=== PATIENT | female | born 1975 | race African-American/Black ===

== ENCOUNTER 2017-04-12 05:13 | Day surgery (SDC) | payer BC ==
[~2017-04-12] VITALS: Ht 172.7 cm; Wt 83.9 kg
[2017-04-12] VITALS (11 sets, daily range): BP systolic 119–144; BP diastolic 73–97
[2017-04-12] MEDS ORDERED: oxyCONTIN 20mg tab ORAL ONE ×2 (06:00→06:35)
[2017-04-12] MEDS ORDERED: celeBREX 100mg Cap **SURGERY PATIENTS ONLY ORAL ONE (06:00)
[2017-04-12] MEDS ORDERED: ceFAZolin sod 1 GM in NS 55 ML IVPB ONE (06:00)
[2017-04-12] MEDS ORDERED: NORCO 5-325 TA1 EAC1 ORAL (06:06)
[2017-04-12] MEDS ORDERED: Ropivacaine 5mg/ml Vial 20ml INJ ONE (06:40)
[2017-04-12] MEDS ORDERED: Bupivacaine w/Epi 0.5% 30ml Vial INJ ONE (06:40)
[2017-04-12] MEDS ORDERED: Bacitracin 50000 Units Vial ONE (06:40)
[2017-04-12] MEDS ORDERED: celeBREX 200mg Cap **SURGERY PATIENTS ONLY ORAL ONE (06:45)
[2017-04-12] MEDS ORDERED: D5 1/2NS 1,000 ML IV SCH (07:00)
[2017-04-12] MEDS ORDERED: HYDROmorphone 1mg/ml Carpuject SUBQ PRN (07:00)
[2017-04-12] MEDS ORDERED: Norco 5mg/325mg tab ORAL PRN (07:00)
[2017-04-12] MEDS ORDERED: Tylenol #3 tab (300mg/30mg) ORAL PRN (07:00)
--- NOTE | 2017-04-12 07:01 | Pre-Procedure Note/Attestation ---
Pre-Procedure Note/Attestation Complete Prior to Procedure Planned Procedure: left Procedure Narrative: left ankle ORIF Indications for Procedure Pre-Operative Diagnosis: Left ankle fracture Attestation I attest that I discussed the nature of the procedure; its benefits; risks and complications; and alternatives (and the risks and benefits of such alternatives ), prior to the procedure, with the patient (or the patient's legal consumer sales representative). I attest that, if there was a reasonable possibility of needing a blood transfusion, the patient (or the patient's legal consumer sales representative) was given the [facility] standardized written summary, pursuant to the [employer] Blood Safety Act ([place] Health and Safety Code # 1645, as amended). I attest that I re-evaluated the patient just prior to the surgery and that there has been no change in the patient's H&P, except as documented below:NONE JEANIE PORRAS Apr 12, 2017 07:01
--- NOTE | 2017-04-12 08:30 | Brief Operative Note ---
Immediate Post Operative Note Operative Note Chief Complaint: left ankle injury Pre-op Diagnosis: Left ankle fracture Procedure: left ankle ORIF Post-op Diagnosis: same as pre-op Findings: consistent w/pre-op dx studies Surgeon: MD Flor Dog Barber: SLIME Eller Anesthesiologist: MD Pavan Anesthesia: general Specimen: none Complications: none Condition: stable Estimated Blood Loss: minimal Drains: none Implant(s) used?: Yes - JEANIE Rider Apr 12, 2017 08:30
[2017-04-12] MEDS ORDERED: LR 1000ml 1,000 ML IVLG SCH (08:38)
--- NOTE | 2017-04-12 08:38 | Anethesia Preoperative Eval ---
Anesthesia Pre-op PMH/ROS General Date of Evaluation: Apr 12, 2017 Time of Evaluation: 06:48 Anesthesiologist: Pavan ASA Score: ASA 2 Mallampati Score Class I : Soft palate, uvula, fauces, pillars visible Class II: Soft palate, uvula, fauces visible Class III: Soft palate, base of uvula visible Class IV: Only hard plate visible Mallampati Classification: Class II Surgeon: Alicia Diagnosis: L ankle Fx. Surgical Procedure: ORIF of L ankle Fx. Anesthesia History: none Social History: smoking - h/o Family History: no anesthesia problems Allergies: Coded Allergies: No Known Allergies (Unverified , 04/11/17) Past Medical History Cardiovascular: Denies: CAD, HTN, [place], arrhythmia, other, valve dz Pulmonary: Denies: COPD, GAYLA, asthma, other Gastrointestinal/Genitourinary: Reports: GERD - mild, Denies: CRI, ESRD, other Neurologic/Psychiatric: Reports: depression/anxiety, Denies: CVA, TIA, dementia, other Endocrine: Denies: DM, hypothyroidism, other, steroids HEENT: Denies: DIOMEDE (L), DIOMEDE (R), cataract (L), cataract (R), glaucoma, other Hematology/Immune: Denies: DVT, anemia, bleeding disorder, other Musculoskeletal/Integumentary: Denies: DDD, DJD, OA, RA, edema, other Other: other - overweight PMH Narrative: as above, acute posttraumatic L ankle Fx. PSxH Narrative: none Anesthesia Pre-op Phys. Exam Physician Exam Last Vital Signs Date Time Temp Pulse Resp B/P Pulse Ox O2 Delivery O2 Flow Rate FiO2 04/12/17 06:12 97.8 65 20 140/82 100 Room Air Constitutional: NAD Neurologic: CN 2-12 intact Cardiovascular: RRR, no M/R/G Respiratory: CTA Gastrointestinal: S/NT/ND Airway Exam Mallampati Score: Class II MO: full Neck: flexible ROM: full Teeth: intact Dentures: no lower, no upper Anesthesia Pre-op A/P Labs see chart Urine Test Test 04/12/17 06:20 Urine HCG, Qualitative Negative Studies Pre-op Studies: EKG - NSR Risk Assessment & Plan Assessment: ASA 2 Plan: GA with LMA, L sciatic nerve block - popliteal fossa - for p/op pain control. Difficulty with peripheral I/V line placement, possible options including PICC line placement explained to patient, she agreed to proceed with attempt to place a line into EJ vein. Placement successful, first attempt , will proceed with regional block and scheduled Sx. Status Change Before Surgery: No Pre-Antibiotics Drug: Ancef 2 gr. Given Within 1 Hr of Incision: Yes Time Given: 08:07 ABIGAIL MACE M.D. Apr 12, 2017 08:38
[2017-04-12] MEDS ORDERED: Metoclopramide 10mg/2ml Inj IVP PRN (08:45)
[2017-04-12] MEDS ORDERED: Hydromorphone 0.5mg/0.5ml inj IVP PRN (08:45)
[2017-04-12] MEDS ORDERED: Midazolam 2mg/2ml Inj IVP PRN (08:45)
[2017-04-12] MEDS ORDERED: Meperidine 25mg/0.5ml Inj IV PRN (08:45)
[2017-04-12] MEDS ORDERED: Ketorolac 30mg Inj IV PRN (08:45)
[2017-04-12] MEDS ORDERED: DiphenhydrAMINE 50mg/ml Inj IVP PRN (08:45)
--- NOTE | 2017-04-12 09:36 | Immediate Post-Op Evaluation ---
Immediate Post-Op Evalulation Immediate Post-Op Evalulation Procedure: L ankle Fx ORIF Date of Evaluation: Apr 12, 2017 Time of Evaluation: 09:34 IV Fluids: 1000 Blood Products: none Estimated Blood Loss: min Urinary Output: some on the table Blood Pressure Systolic: 144 Blood Pressure Diastolic: 84 Pulse Rate: 72 Respiratory Rate: 22 Temperature (Fahrenheit): 97.6 Pain Score (1-10): 2 Nausea: No Vomiting: No Complications none Patient Status: reacts, patent, none Hydration Status: adequate ABIGAIL MACE M.D. Apr 12, 2017 09:36
--- NOTE | 2017-04-12 12:47 | 48 Hour Post Anesthesia Eval ---
Post Anesthesia Evaluation Procedure: L ankle Fx ORIF Date of Evaluation: Apr 12, 2017 Time of Evaluation: 12:46 Blood Pressure Systolic: 132 0: 56 Pulse Rate: 72 Respiratory Rate: 20 Temperature (Fahrenheit): 97.6 O2 Sat by Pulse Oximetry: 98 Airway: patent Nausea: No Vomiting: No Pain Intensity: 2 Hydration Status: adequate Cardiopulmonary Status: stable Mental Status/LOC: patient returned to baseline Follow-up Care/Observations: n/a Post-Anesthesia Complications: none Follow-up care needed: ready to discharge ABIGAIL MACE M.D. Apr 12, 2017 12:47
--- NOTE | 2017-04-12 13:45 | Operative Note - Dictated ---
DATE OF OPERATION: 04/12/2017 PREOPERATIVE DIAGNOSIS: Left ankle bimalleolar fracture with syndesmotic disruption. POSTOPERATIVE DIAGNOSIS: Left ankle bimalleolar fracture with syndesmotic disruption. PROCEDURES: 1. Left ankle open reduction and internal fixation using a Karen one third tubular plate with a lag screw in the fibula. 2. Partially threaded cancellous screw in the medial malleolus. 3. Left ankle syndesmotic reduction repair using a [employer] juggernaut ankle syndesmotic fixation stainless steel. SURGEON: Durga Ray M.D. LANDSCAPER: Lola Eller PA-C. ANESTHESIOLOGIST: Forest Browne M.D. ANESTHESIA: General LMA anesthesia. ESTIMATED BLOOD LOSS: Less than 20 mL. COMPLICATIONS: None. TOURNIQUET TIME: 60 minutes. BRIEF HISTORY: The patient is a pleasant 41-year-old female, who sustained a fall and had the ankle fracture. This was a displaced fracture. She was reduced in the ER. The syndesmosis appeared to be displaced. After full discussion of the risks and benefits of the surgery and complications associated with it including infection, bleeding, neurovascular complication, possibility of malunion, nonunion, possible need for further surgery, possibility of posttraumatic arthritis, DVT, PEs, and other complication, she opted for surgical treatment as described above. OPERATIVE PROCEDURE: The patient was brought to the operating room table and was placed supine. All pressure points were well padded. General LMA anesthesia was induced. The left ankle was prepped and draped in the usual sterile fashion and it was exsanguinated and tourniquet was inflated to 275 mmHg. A standard approach to the lateral ankle was performed. The fibula was exposed. There was oblique fracture. This was reduced anatomically and a lag screw was placed from anterior posterior. At this point, a 1/3 tubular plate was applied and two cancellous screws were placed distally around the joint line and three bicortical screws were placed proximally. This held the fracture anatomically in place. Once this was completed, care was given to the medial side. An incision was made over the medial malleolus. Incision was taken down through subcutaneous tissue. The medial malleolus fracture was identified. The periosteum was resected from the fracture site. The fracture was reduced anatomically and at this point, two 4.0 partially threaded cancellous screws measuring 40 mm were placed in and compressed the fracture. This provided excellent stability of the medial side. At this point, the syndesmosis was checked and it appeared to be unstable. Therefore, a Biomet juggernaut ankle syndesmotic fixation device with stainless steel button was used to fix the syndesmosis after syndesmosis was reduced with the ankle in dorsiflexion using clamps. Once this was completed, AP, lateral, mortise views were obtained and the mortise appeared to be held in place well. There was no instability. The reductions were anatomical. Wounds were thoroughly irrigated using copious amount of fluid. The subcutaneous tissue was closed in 2-0 Vicryl suture. The skin was closed using 3-0 Monocryl suture. Local injection was performed. Posterior splint and sugar-tong splint was applied. The patient tolerated the procedure well without any complication and was taken to recovery room in stable condition. Durga Ray M.D. DR: KIMBERLY JOB#: [id number] CC:
--- NOTE | 2017-04-13 11:01 | Diagnostic Imaging Report ---
Indications: Open reduction and internal fixation of left ankle bimalleolar fractures Technique: Above procedure including fluoroscopy performed by Dr. Vargas. Portable intraoperative spot film images of the left ankle performed in AP and lateral projections. Findings: Comparison: None 2 parallel fixation screws traverse the medial talus. Fixation plate and multiple anchoring screws are present along the distal aspect of the fibula. No malalignment is identified. Lateral view demonstrates suggestion of mild widening of the intra-aspect of the tibiotalar joint. IMPRESSION: Reduction internal fixation of distal tibial and fibular fractures Suggestion of mild ankle joint widening anteriorly
== END 2017-04-12 14:50 | disposition home or self-care (01) ==
LOC: SUR 05:13
DX: S82.842A Displaced bimalleolar fracture of left lower leg, initial encounter for closed fracture (principal); S93.432A Sprain of tibiofibular ligament of left ankle, initial encounter; X58.XXXA Exposure to other specified factors, initial encounter; Y92.89 Other specified places as the place of occurrence of the external cause; Y99.9 Unspecified external cause status; K21.9 Gastro-esophageal reflux disease without esophagitis; F32.9 Major depressive disorder, single episode, unspecified; F41.9 Anxiety disorder, unspecified; E66.3 Overweight; Z87.891 Personal history of nicotine dependence
CPT/HCPCS: 27814; 27829; 73600; 76001; 81025; 97161; J2765; J2795